=== PATIENT | male | born 1995 | race Caucasian/White ===

== ENCOUNTER 2021-02-13 11:28 | Emergency (ER) | payer OTHER ==
[~2021-02-13] VITALS: Ht 177.8 cm; Wt 118.2 kg
[2021-02-13 11:48] LABS: BASO # 0.03 K/mm3 (0.02-0.10); EOS % 1.1 % (0.0-4.0); HEMATOCRIT 47.4 % (42.0-52.0); HEMOGLOBIN 16.2 g/dL (13.5-18.0); LYMPH# 3.06 K/mm3 (1.50-4.00); MEAN CELL VOLUME 84 fl (78-100); MEAN CORPUSCULAR HEMOGLOBIN 29 pg (27-31); MEAN CORPUSCULAR HGB CONC 34 g/dL (33-37); MEAN PLATELET VOLUME 8.8 fl (7.4-10.4); MONO # 0.54 K/mm3 (0.20-0.80); NEU # 5.13 K/mm3 (1.40-6.50); PLATELET COUNT 223 K/mm3 (130-400); RED BLOOD COUNT 5.63 M/mm3 (4.20-5.60); RED CELL DISTRIBUTION WIDTH 13.4 % (11.5-14.5); WHITE BLOOD COUNT 8.9 K/mm3 (4.8-10.8)
[2021-02-13 11:59] LABS: ALBUMIN 4.6 g/dL (3.5-5.0); POTASSIUM 3.5 mmol/L (3.5-5.1)
[2021-02-13 12:00] LABS: CALCIUM 10.2 mg/dL (8.3-10.5)
[2021-02-13 12:01] LABS: TOTAL PROTEIN 8.4 g/dL (6.4-8.3)
[2021-02-13 12:03] LABS: TOTAL BILIRUBIN 0.7 mg/dL (0.2-1.2)
[2021-02-13 12:24] LABS: URINE APPEARANCE CLEAR; URINE BILIRUBIN NEGATIVE (NEGATIVE); URINE BLOOD 250 ery/uL (NEGATIVE); URINE COLOR YELLOW; URINE GLUCOSE NEGATIVE (NEGATIVE); URINE KETONE NEGATIVE (NEGATIVE); URINE LEUKOCYTE ESTERASE NEGATIVE (NEGATIVE); URINE NITRATE NEGATIVE (NEGATIVE); URINE PROTEIN(semi-quant) 3+ (NEGATIVE); URINE UROBILINOGEN NORMAL (NORMAL)
[2021-02-13 12:25] LABS: URINE MUCUS PRESENT (NOT PRESENT)
[2021-02-13] MEDS ORDERED: FLOMAX0.4 MG PO (13:45)
[2021-02-13] MEDS ORDERED: PERCOCET 325 MG1 TA2 PO (13:45)
[2021-02-13 13:50] VITALS: BP 154/81
== END 2021-02-13 13:51 | disposition home or self-care (01) ==
LOC: ED 11:28
PROVIDERS: Physician Assistant
DX: N13.2 Hydronephrosis with renal and ureteral calculous obstruction (principal)
CPT/HCPCS: J1885

== ENCOUNTER → 2021-07-08 | Outpatient (CLI) | payer OTHER ==
[~2021-07-08] MED LIST: FLOMAX0.4 MG PO; PERCOCET 325 MG1 TA2 PO
[2021-07-08 16:51] LABS: BASO # 0.03 K/mm3 (0.02-0.10); EOS # 0.07 K/mm3 (0.04-0.40); EOS % 0.6 % (0.0-4.0); HEMATOCRIT 45.8 % (42.0-52.0); HEMOGLOBIN 15.7 g/dL (13.5-18.0); LYMPH# 2.07 K/mm3 (1.50-4.00); MEAN CELL VOLUME 84 fl (78-100); MEAN CORPUSCULAR HEMOGLOBIN 29 pg (27-31); MEAN CORPUSCULAR HGB CONC 34 g/dL (33-37); MEAN PLATELET VOLUME 9.3 fl (7.4-10.4); MONO # 0.65 K/mm3 (0.20-0.80); NEU # 9.28 K/mm3 (1.40-6.50); PLATELET COUNT 179 K/mm3 (130-400); RED BLOOD COUNT 5.44 M/mm3 (4.20-5.60); RED CELL DISTRIBUTION WIDTH 13.7 % (11.5-14.5); WHITE BLOOD COUNT 12.1 K/mm3 (4.8-10.8)
[2021-07-08 17:03] LABS: ALBUMIN 4.4 g/dL (3.5-5.0); POTASSIUM 3.9 mmol/L (3.5-5.1); SODIUM 143 mmol/L (136-145)
[2021-07-08 17:04] LABS: CALCIUM 9.9 mg/dL (8.3-10.5)
[2021-07-08 17:05] LABS: GLUCOSE 112 mg/dL (75-110)
[2021-07-08 17:06] LABS: TOTAL PROTEIN 7.7 g/dL (6.4-8.3)
[2021-07-08 17:07] LABS: CARBON DIOXIDE 22 mmol/L (22-29); TOTAL BILIRUBIN 0.8 mg/dL (0.2-1.2)
[2021-07-08 17:11] LABS: AST-SGOT 59 U/L (5-34)
[2021-07-08 17:12] LABS: ALT/SGPT 48 U/L (0-55)
[2021-07-08 17:19] LABS: D-DIMER 0.27 mg/L FEU (0.15-0.50); TROPONIN-I < 0.030 ng/mL (<0.030)
== END ==
LOC: LAB 16:37
PROVIDERS: Family Medicine
DX: M51.36 Other intervertebral disc degeneration, lumbar region (principal); E78.00 Pure hypercholesterolemia, unspecified; E66.9 Obesity, unspecified; L40.9 Psoriasis, unspecified; M06.9 Rheumatoid arthritis, unspecified; M08.00 Unspecified juvenile rheumatoid arthritis of unspecified site; R06.00 Dyspnea, unspecified; Z87.442 Personal history of urinary calculi

== ENCOUNTER → 2021-09-23 | Outpatient (CLI) | payer OTHER ==
[2021-09-23 14:48] LABS: BASO # 0.03 K/mm3 (0.02-0.10); EOS # 0.07 K/mm3 (0.04-0.40); EOS % 0.8 % (0.0-4.0); HEMOGLOBIN 14.9 g/dL (13.5-18.0); LYMPH# 2.53 K/mm3 (1.50-4.00); MEAN CELL VOLUME 85 fl (78-100); MEAN CORPUSCULAR HEMOGLOBIN 29 pg (27-31); MEAN CORPUSCULAR HGB CONC 34 g/dL (33-37); MEAN PLATELET VOLUME 8.9 fl (7.4-10.4); MONO # 0.52 K/mm3 (0.20-0.80); NEU # 5.46 K/mm3 (1.40-6.50); PLATELET COUNT 186 K/mm3 (130-400); RED BLOOD COUNT 5.15 M/mm3 (4.20-5.60); RED CELL DISTRIBUTION WIDTH 13.5 % (11.5-14.5); WHITE BLOOD COUNT 8.7 K/mm3 (4.8-10.8)
[2021-09-25 07:18] LABS: ALTERNARIA TENUIS CNT <0.10 kU/L (()); ASPERGILLUS FUMIGATUS AL COUNT <0.10 kU/L (()); BERMUDA GRASS ALLERGEN COUNT <0.10 kU/L (()); BOX ELDER-MAPLE ALLERGEN COUNT <0.10 kU/L (()); CAT DANDER ALLERGEN COUNT <0.10 kU/L (()); CLADOSPORIUM ALLERGEN COUNT <0.10 kU/L (()); COCKROACH ALLERGEN COUNT <0.10 kU/L (()); COTTONWOOD TREE ALLERGEN COUNT <0.10 kU/L (()); DOG DANDER ALLERGEN COUNT <0.10 kU/L (()); DUST MITES (D.F.) ALLERG COUNT <0.10 kU/L (()); DUST MITES (D.P.) ALLERG COUNT <0.10 kU/L (()); ELM TREE ALLERGEN COUNT <0.10 kU/L (()); FIREBUSH ALLERGEN COUNT <0.10 kU/L (()); OAK ALLERGEN COUNT <0.10 kU/L (()); ROUGH MARSH ELDER ALLERG COUNT <0.10 kU/L (()); RUSSIAN THISTLE ALLERGEN COUNT <0.10 kU/L (()); SHORT RAGWEED ALLERGEN COUNT <0.10 kU/L (())
== END ==
LOC: LAB 14:25
PROVIDERS: Family Medicine
DX: L23.9 Allergic contact dermatitis, unspecified cause (principal); I50.9 Heart failure, unspecified

== ENCOUNTER → 2022-04-10 | Outpatient (CLI) | payer OTHER | LOC: RAD 15:37 | DX: I51.7 Cardiomegaly (principal) ==

== ENCOUNTER → 2022-05-15 | Outpatient (CLI) | payer OTHER ==
[~2022-05-15] MED LIST changes: +PROVENTIL0.09 MG/A1 IH; +SINGULAIR PO; +TREMFYA100 MG/1 M SQ; +ZYRTEC10 M3 PO
[2022-05-15 16:57] LABS: BASO # 0.03 K/mm3 (0.02-0.10); EOS # 0.09 K/mm3 (0.04-0.40); EOS % 1.1 % (0.0-4.0); HEMATOCRIT 43.5 % (42.0-52.0); HEMOGLOBIN 15.3 g/dL (13.5-18.0); LYMPH# 2.45 K/mm3 (1.50-4.00); MEAN CELL VOLUME 84 fl (78-100); MEAN CORPUSCULAR HEMOGLOBIN 29 pg (27-31); MEAN CORPUSCULAR HGB CONC 35 g/dL (33-37); MEAN PLATELET VOLUME 9.4 fl (7.4-10.4); MONO # 0.51 K/mm3 (0.20-0.80); NEU # 5.45 K/mm3 (1.40-6.50); PLATELET COUNT 171 K/mm3 (130-400); RED BLOOD COUNT 5.21 M/mm3 (4.20-5.60); RED CELL DISTRIBUTION WIDTH 13.9 % (11.5-14.5); WHITE BLOOD COUNT 8.6 K/mm3 (4.8-10.8)
[2022-05-15 17:37] LABS: ALBUMIN 4.4 g/dL (3.5-5.0); POTASSIUM 3.8 mmol/L (3.5-5.1)
[2022-05-15 17:38] LABS: CALCIUM 9.8 mg/dL (8.3-10.5)
[2022-05-15 17:40] LABS: TOTAL PROTEIN 7.8 g/dL (6.4-8.3)
[2022-05-15 17:41] LABS: TOTAL BILIRUBIN 0.6 mg/dL (0.2-1.2)
== END ==
LOC: LAB 16:38
PROVIDERS: Nurse Practitioner
DX: K92.0 Hematemesis (principal); M51.36 Other intervertebral disc degeneration, lumbar region

== ENCOUNTER → 2022-11-11 | Outpatient (CLI) | payer OTHER | END | disposition still patient (30) | LOC: RAD 11:14 | DX: R04.2 Hemoptysis (principal) ==

== ENCOUNTER → 2023-01-07 | Outpatient (CLI) | payer OTHER | LOC: LAB 16:09 | DX: E11.9 Type 2 diabetes mellitus without complications (principal); L40.0 Psoriasis vulgaris; L40.59 Other psoriatic arthropathy ==

== ENCOUNTER 2023-01-14 14:50 | Outpatient (RCR) | payer OTHER | END 2023-02-05 14:27 | disposition home or self-care (01) | LOC: PT 14:50 | DX: M51.36 Other intervertebral disc degeneration, lumbar region (principal) ==

== ENCOUNTER → 2023-03-08 | Outpatient (CLI) | payer OTHER ==
[2023-03-08 15:35] LABS: ALBUMIN 4.6 g/dL (3.5-5.0)
[2023-03-08 15:36] LABS: CALCIUM 10.1 mg/dL (8.3-10.5)
[2023-03-08 15:37] LABS: TOTAL PROTEIN 7.7 g/dL (6.4-8.3)
[2023-03-08 15:39] LABS: TOTAL BILIRUBIN 0.68 mg/dL (0.2-1.2)
== END ==
LOC: LAB 15:14
PROVIDERS: Internal Medicine Rheumatology
DX: R79.89 Other specified abnormal findings of blood chemistry (principal)

== ENCOUNTER → 2023-03-25 | Outpatient (CLI) | payer OTHER | LOC: RAD 15:33 | DX: R20.2 Paresthesia of skin (principal) ==

== ENCOUNTER → 2023-07-13 | Outpatient (CLI) | payer SELFPAY ==
[~2023-07-13] MED LIST changes: +ATORVASTATIN CA40 MG PO; +CYCLOBENZAPRINE10 M1 PO; +DULOXETINE20 MG PO; +FEXOFENADINE HY60 MG PO; +FOLIC ACID1 MG PO; +GABAPENTIN100 MG PO; +GLUCOPHAGE PO; +GLUCOTROL 5M5 MG/TAB PO; +LYMEPAK100 MG PO; +METHOTREXATE2.5 MG PO; +MUPIROCIN2% TP; +NIACIN ER500 MG PO; +OLOPATADINE HC2.5 ML OP; +PANTOPRAZOLE SO40 MG PO; +TRAMADOL 50 MG TAB PO; +ZOFRAN ODT4 MG PO; +ZOLPIDEM TART10 MG PO; +[UNRECOGNIZED DRUG - OTHER] SQ; +[UNRECOGNIZED DRUG - SUPPLY]
[2023-08-31 11:27] LABS: ALLERGEN CLASS INTERP GUIDE AMS; ALTERNARIA TENUIS ALLERG CLASS AMS; ALTERNARIA TENUIS CNT AMS; ASPERGILLUS FUMIGATUS AL CLASS AMS; ASPERGILLUS FUMIGATUS AL COUNT AMS; BERMUDA GRASS ALLERGEN CLASS AMS; BERMUDA GRASS ALLERGEN COUNT AMS; BOX ELDER-MAPLE ALLERGEN CLASS AMS; BOX ELDER-MAPLE ALLERGEN COUNT AMS; CAT DANDER ALLERGEN CLASS AMS; CAT DANDER ALLERGEN COUNT AMS; CLADOSPORIUM ALLERGEN CLASS AMS; CLADOSPORIUM ALLERGEN COUNT AMS; COCKROACH ALLERGEN CLASS AMS; COCKROACH ALLERGEN COUNT AMS; COTTONWOOD TREE ALLERGEN CLASS AMS; COTTONWOOD TREE ALLERGEN COUNT AMS; DOG DANDER ALLERGEN CLASS AMS; DOG DANDER ALLERGEN COUNT AMS; DUST MITES (D.F.) ALLERG CLASS AMS; DUST MITES (D.F.) ALLERG COUNT AMS; DUST MITES (D.P.) ALLERG CLASS AMS; DUST MITES (D.P.) ALLERG COUNT AMS; ELM TREE ALLERGEN CLASS AMS; ELM TREE ALLERGEN COUNT AMS; FIREBUSH ALLERGEN CLASS AMS; FIREBUSH ALLERGEN COUNT AMS; OAK ALLERGEN CLASS AMS; OAK ALLERGEN COUNT AMS; ROUGH MARSH ELDER ALLERG CLASS AMS; ROUGH MARSH ELDER ALLERG COUNT AMS; RUSSIAN THISTLE ALLERGEN CLASS AMS; RUSSIAN THISTLE ALLERGEN COUNT AMS; SHORT RAGWEED ALLERGEN CLASS AMS; SHORT RAGWEED ALLERGEN COUNT AMS
[2023-08-31 12:32] LABS: BASO # 0.03 K/mm3 (0.02-0.10); EOS % 1.4 % (0.0-4.0); HEMATOCRIT 45.8 % (42.0-52.0); HEMOGLOBIN 15.6 g/dL (13.5-18.0); LYMPH# 2.74 K/mm3 (1.50-4.00); MEAN CELL VOLUME 83 fl (78-100); MEAN CORPUSCULAR HEMOGLOBIN 28 pg (27-31); MEAN CORPUSCULAR HGB CONC 34 g/dL (33-37); MEAN PLATELET VOLUME 9.1 fl (7.4-10.4); PLATELET COUNT 175 K/mm3 (130-400); RED CELL DISTRIBUTION WIDTH 13.5 % (11.5-14.5)
== END ==
LOC: LAB 14:12
PROVIDERS: Family Medicine
DX: E11.9 Type 2 diabetes mellitus without complications (principal); E55.9 Vitamin D deficiency, unspecified; J30.2 Other seasonal allergic rhinitis

== ENCOUNTER → 2023-12-10 | Outpatient (CLI) | payer OTHER ==
[2023-12-11 17:18] LABS: TB GOLD INTERPRETATION.TB GOLD Negative (Negative)
== END ==
LOC: LAB 14:05
PROVIDERS: Nurse Practitioner Family
DX: L40.0 Psoriasis vulgaris (principal); L40.59 Other psoriatic arthropathy; L73.2 Hidradenitis suppurativa

== ENCOUNTER → 2024-01-28 | Outpatient (CLI) | payer OTHER | LOC: LAB 12:50 | DX: I51.89 Other ill-defined heart diseases (principal); E78.1 Pure hyperglyceridemia ==

== ENCOUNTER → 2024-03-21 | Outpatient (CLI) | payer OTHER ==
[2024-03-21 16:06] LABS: BASO # 0.01 K/mm3 (0.02-0.10); EOS # 0.14 K/mm3 (0.04-0.40); EOS % 1.6 % (0.0-4.0); HEMATOCRIT 44.1 % (42.0-52.0); HEMOGLOBIN 15.3 g/dL (13.5-18.0); MEAN CELL VOLUME 83 fl (78-100); MEAN CORPUSCULAR HEMOGLOBIN 29 pg (27-31); MEAN CORPUSCULAR HGB CONC 35 g/dL (33-37); MEAN PLATELET VOLUME 8.9 fl (7.4-10.4); MONO # 0.41 K/mm3 (0.20-0.80); NEU # 5.27 K/mm3 (1.40-6.50); PLATELET COUNT 202 K/mm3 (130-400); RED CELL DISTRIBUTION WIDTH 13.7 % (11.5-14.5); WHITE BLOOD COUNT 8.7 K/mm3 (4.8-10.8)
[2024-03-21 16:16] LABS: ALBUMIN 4.4 g/dL (3.5-5.0)
[2024-03-21 16:17] LABS: CALCIUM 9.6 mg/dL (8.3-10.5)
[2024-03-21 16:20] LABS: TOTAL BILIRUBIN 0.6 mg/dL (0.2-1.2)
== END ==
LOC: LAB 15:34
PROVIDERS: Family Medicine
DX: E11.9 Type 2 diabetes mellitus without complications (principal); E55.9 Vitamin D deficiency, unspecified; I10 Essential (primary) hypertension; D50.9 Iron deficiency anemia, unspecified

== ENCOUNTER → 2024-03-21 | Outpatient (CLI) | payer OTHER | LOC: LAB 15:38 | DX: I51.89 Other ill-defined heart diseases (principal); E78.1 Pure hyperglyceridemia ==